=== PATIENT | female | born 1995 | race Caucasian/White ===

== ENCOUNTER 2019-10-24 17:43 | Emergency (ER) | payer OTHER ==
[2019-10-24 18:36] LABS: APPEARANCE,URINE CLEAR; BILIRUBIN,URINE NEGATIVE (NEGATIVE); COLOR,URINE YELLOW; GLUCOSE, URINE NEGATIVE (NEGATIVE); KETONES,URINE NEGATIVE (NEGATIVE); LEUKOCYTE ESTERASE,URINE NEGATIVE (NEGATIVE); NITRITE,URINE NEGATIVE (NEGATIVE); PROTEIN,URINE NEGATIVE (NEGATIVE); URINE SPECIFIC GRAVITY 1.014
[2019-10-24 18:52] LABS: URINE AMPHETAMINES SCREEN NEGATIVE; URINE BARBITURATES SCREEN NEGATIVE; URINE BENZODIAZEPINES SCREEN NEGATIVE; URINE COCAINE SCREEN NEGATIVE; URINE MARIJUANA (THC) SCREEN NEGATIVE; URINE METHADONE SCREEN NEGATIVE; URINE PHENCYCLIDINE SCREEN NEGATIVE
[2019-10-24 19:18] LABS: ABSOLUTE LYMPHOCYTES (AUTO) 2.3 10^3/uL (0.5-4.7); ABSOLUTE MONOCYTES (AUTO) 0.5 10^3/uL (0.1-1.4); BASOPHILS % (AUTO) 0.5 % (0-2); EOSINOPHILS % (AUTO) 0.1 % (0-6); HEMATOCRIT 32.7 % (36.0-47.0); HEMOGLOBIN 11.3 g/dL (12.0-15.5); LYMPHOCYTES % (AUTO) 29.7 % (13-45); MEAN CORPUSCULAR HEMOGLOBIN 31.1 pg (27.0-33.4); MEAN CORPUSCULAR HGB CONC 34.6 g/dL (32.0-36.0); MEAN CORPUSCULAR VOLUME 90 fl (80-97); MONOCYTES % (AUTO) 6.2 % (3-13); PLATELET COUNT 305 10^3/uL (150-450); RED BLOOD COUNT 3.63 10^6/uL (3.72-5.28); RED CELL DISTRIBUTION WIDTH 12.2 % (11.5-14.0); SEGMENTED NEUTROPHILS % (AUTO) 63.5 % (42-78); TOTAL CELLS COUNTED % (AUTO) 100 %; WHITE BLOOD COUNT 7.8 10^3/uL (4.0-10.5)
[2019-10-24 19:40] LABS: ALBUMIN 4.4 g/dL (3.5-5.0); ALKALINE PHOSPHATASE 34 U/L (38-126); ANION GAP 7 (5-19); ASPARTATE AMINO TRANSFERASE 28 U/L (14-36); BILIRUBIN,DIRECT 0.1 mg/dL (0.0-0.4); BILIRUBIN,TOTAL 0.7 mg/dL (0.2-1.3); BLOOD UREA NITROGEN 11 mg/dL (7-20); CALCIUM 9.4 mg/dL (8.4-10.2); CARBON DIOXIDE 27 mmol/L (22-30); CHLORIDE 104 mmol/L (98-107); GLUCOSE 87 mg/dL (75-110); POTASSIUM 3.7 mmol/L (3.6-5.0); TOTAL PROTEIN 7.3 g/dL (6.3-8.2)
[2019-10-24 19:41] LABS: ACETAMINOPHEN < 10 ug/mL (10-30); ALCOHOL < 10 mg/dL (NONE DETECTED); SALICYLATE < 1.0 mg/dL (2.0-20.0)
--- NOTE | 2019-10-24 20:39 | ER Document Report ---
ED Psych Disorder / Suicide - General Mode of Arrival: Medic Information source: Patient TRAVEL OUTSIDE OF THE [place] IN LAST 30 DAYS: No - Related Data Home Medications: Accutane. Lamictal. control <TASH MCKEON - Last Filed: 10/24/19 22:07> <COURTNEYREBECA - Last Filed: 10/25/19 06:12> - General Chief Complaint: Psych Problem Stated Complaint: PSYCH Time Seen by Provider: 10/24/19 20:19 Notes: 24-year-old female past medical history significant for fibromyalgia, anxiety presents to the emergency room after self cutting her left forearm earlier today. States she was trying to hurt herself that she was not trying to kill herself. Patient states she was upset because she found out her boyfriend had cheated on her on Sunday and was trying to pack up her things and leave him when she became anxious and started cutting herself to hurt herself. Patient states she first cut her self 3 years ago has been in therapy ever since. Has never been on any medications for anxiety. States she also recently was started on both Accutane and control pills back in July. She denies suicidal homicidal ideation. Tetanus is up-to-date. Patient is right-handed. (TASH MCKEON) - Related Data Allergies/Adverse Reactions: No Known Allergies Allergy (Verified 12/16/15 15:28) Past Medical History - General Information source: Patient - Social History Smoking Status: Never Smoker Frequency of alcohol use: None Drug Abuse: None Family History: Reviewed & Not Pertinent Patient has homicidal ideation: No Neurological Medical History: Reports: Hx Migraine - Immunizations Immunizations up to date: Yes <TASH MCKEON - Last Filed: 10/24/19 22:07> Review of Systems - Review of Systems Constitutional: No symptoms reported EENT: No symptoms reported Cardiovascular: No symptoms reported Respiratory: No symptoms reported Gastrointestinal: No symptoms reported Musculoskeletal: No symptoms reported Skin: Other - multiple to the left forearm Neurological/Psychological: Anxiety, Other - Self cutting <TASH MCKEON - Last Filed: 10/24/19 22:07> Physical Exam - General General appearance: Appears well, Alert In distress: Mild - HEENT Head: Normocephalic, Atraumatic Eyes: Normal Pupils: PERRL - Respiratory Respiratory status: No respiratory distress Chest status: Nontender Breath sounds: Normal Chest palpation: Normal - Cardiovascular Rhythm: Regular Heart sounds: Normal auscultation Murmur: No - Extremities General upper extremity: Normal ROM Forearm: Tender, Abrasion - There are multiple cuts noted to the left forearm that are not suturable. Dressing in place dry and intact. They are tender to palpation with no active bleeding noted. - Neurological Neuro grossly intact: Yes Cognition: Normal Orientation: AAOx4 [place] Coma Scale Eye Opening: Spontaneous Omar Coma Scale Verbal: Oriented [place] Coma Scale Motor: Obeys Commands Omar Coma Scale Total: 15 Speech: Normal Motor strength normal: LUE, RUE, LLE, RLE Sensory: Normal - Skin Skin Temperature: Warm Skin Moisture: Dry Skin Color: Erythema Skin irregularity: other - There are multiple self-inflicted cuts to the left forearm, they are tender to palpation. They are nonsuturable. Dressing in place that is dry and intact. Location of irregularity: Extremities Character of irregularity: Linear, Erythematous <TASH MCKEON - Last Filed: 10/24/19 22:07> - Vital signs Vitals: Temp Pulse Resp BP Pulse Ox 99 F 87 16 128/79 H 97 10/24/19 18:19 10/24/19 18:19 10/24/19 18:19 10/24/19 18:19 10/24/19 18:19 - Neurological Notes: Positive left radial pulse. Capillary refill less than 3 seconds. (TASH MCKEON) Course - Laboratory Result Diagrams: 10/24/19 19:10 10/24/19 19:10 - EKG Interpretation by Tn EKG shows normal: Sinus rhythm <TASH MCKEON - Last Filed: 10/24/19 22:07> - Laboratory Result Diagrams: 10/24/19 19:10 10/24/19 19:10 <REBECA VALDEZ - Last Filed: 10/25/19 06:12> - Re-evaluation Re-evalutation: 10/24/19 21:39 Patient is medically clear. Patient has been seen and evaluated by psych who has placed her on IVC, suicide precautions. Patient is aware. 10/24/19 22:06 patient signed out to Maggie Banks [employer], discussed labs, history and phys ical exam and plan of care. 10/24/19 22:07 (TASH MCKEON) 10/25/19 06:10 Nursing staff has informed me that patient has been accepted to [facility] inpatient psychiatric services. Accepting physician is Dr. Piedra. Patient is also requesting her Lamictal and gabapentin, I did look these up on her field medication records and noted these to be her medications, she was provided with the doses of these. Patient is to be transferred to psychiatric inpatient by law enforcement. Updated Dr. Larios who signed EMTALA forms. (REBECA VALDEZ) - Vital Signs Vital signs: Temp Pulse Resp BP Pulse Ox 98.3 F 85 16 115/79 96 10/25/19 04:28 10/25/19 04:28 10/25/19 04:28 10/25/19 04:28 10/25/19 04:28 - Laboratory Laboratory results interpreted by me: 10/24/19 10/24/19 10/24/19 17:59 19:10 19:10 RBC 3.63 L Hgb 11.3 L Hct 32.7 L Alkaline Phosphatase 34 L Urine Urobilinogen 2.0 H Salicylates < 1.0 L Acetaminophen < 10 L - EKG Interpretation by Me Additional EKG results interpreted by me: 10/24/19 21:39 EKG was interpreted by ED physician Dr. Baptiste. (TASH MCKEON) Discharge <TASH MCKEON - Last Filed: 10/24/19 22:07> <REBECA VALDEZ - Last Filed: 10/25/19 06:12> - Discharge Clinical Impression: Self mutilating behavior Disposition: PSYCH HOSP/UNIT
[2019-10-24] MEDS ORDERED: CEPHALEXIN 500 MG CAPSULE PO ONE ×2 (20:41→23:59)
--- NOTE | 2019-10-24 22:45 | PSYCHOLOGICAL NOTE ---
Psych Note - Psych Note Date seen by psych provider: 10/24/19 Time seen by psych provider: 18:40 Psych Note: Reason for Consult: Suicidal ideation. self harm Patient discloses that she was brought to [facility] ED because she cut herself. She believes that it is because of her medications of Lamictal Accutane and control. 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 She denies any previous cutting. Patient then reports that she broke up with her boyfriend today and was in the process of packing up when emotions became overwhelming and too much. She reports she has no contact with her family for the last year and a half. She discloses that she started with outpatient mental health services approximately 3 years ago when she went through her divorce. Patient states that she waited over 8 months before she started dating and this is the first guys she started to date. Patient discloses multiple medical diagnoses and states that she was medically retired after 6 years from the . Patient was medically retired in September because "my whole body is ill I have fibromyalgia..." Patient is asked about the letter at home and she reports that that was a break-up letter not a suicide letter. Patient is alert and orientated to person, place, time and circumstance. Mood and affect are flat. Patient presents after intentional cutting going across the inner elbow and down the middle of her wrist. Patient denies homicidal ideation. Delusions are absent behaviors congruent with intact reality based presentation i.e. organized and linear thought process. Eye contact is poor. Conversational speech is flat and monotone. Intellectual abilities appear to be within the average range. Attention and concentration is fair to poor. Insight, judgment, impulse control is poor. Impression/plan: patient is recommended for IVC; paperwork is signed, faxed and placed in patient's chart. Patient reports she was feeling overwhelmed and couldn't take it anymore so she cut herself. She has multiple cuts going across the inside of her elbow and one going down the center of her wrist. She was found when her boyfriend came home unexpectedly. She reports they broke up today and she wrote him as "break up letter, not a suicide letter." She admits she has never cut herself before and states she felt like she deserved the pain. She is currently a danger to herself. Dr. Ramirez was consulted on the care and management of this patient; attending physician is in agreement with recommendations and disposition. Update Patient was accepted to [facility] 10/25/2019; patient was transported 10/25/2019 at 10:40 AM
[2019-10-25] MEDS ORDERED: LAMOTRIGINE 100 MG TABLET PO ONE (05:53)
[2019-10-25] MEDS ORDERED: GABAPENTIN 300 MG CAPSULE PO ONE (05:54)
[2019-10-25] MEDS ORDERED: CEPHALEXIN 500 MG CAPSULE PO SCH (10:15)
[2019-10-25 10:51] VITALS: BP 107/65
--- NOTE | 2019-10-26 10:47 | EKG REPORT ---
SEVERITY:- NORMAL ECG - SINUS RHYTHM : Confirmed by: Lasha Martines 26-Oct-2019 10:46:15
== END 2019-10-25 10:40 ==
LOC: ER 17:43
DX: F29 Unspecified psychosis not due to a substance or known physiological condition (principal); Z11.59 Encounter for screening for other viral diseases; Z91.5 Personal history of self-harm
CPT/HCPCS: 93005; 99285; 36415; 80307 ×4; 85025; 87635; 80053; 81001; 93010; J3490